=== PATIENT | female | born 1940 | race African-American/Black ===

== ENCOUNTER 2016-11-30 19:02 | Emergency (ER) | payer OTHER, BC ==
[~2016-11-30 19:02] MED LIST: ALD250 PO; ALDOMET OR; ASA5GR PO; ASAB PO; BUM1 PO; BUM2 PO; BUM5 PO; BYSTOLIC5 MG PO; C25; C25 PO; CARDU2 PO; CARDU4 PO; COREG12 PO; COREG3 PO; COREG6 PO; COUMADIN3 MG PO; HALF81 PO; ISRADIPINE 5 MG; KDUR20 PO; LOTE20 PO; LOTE40 PO; MEVACOR PO; OYST-CAL500 MG PO; PLAVIX PO; VITAMIN E PO; VITE PO; ZETIA PO; [UNRECOGNIZED DRUG - OTHER]; [UNRECOGNIZED DRUG - REMARK]; [UNRECOGNIZED DRUG - REMARK]
== END 2016-11-30 20:35 | disposition home or self-care (01) ==
LOC: ER 19:02
DX: M54.5 Low back pain (principal); M79.605 Pain in left leg; I10 Essential (primary) hypertension; I48.91 Unspecified atrial fibrillation; Z88.8 Allergy status to other drugs, medicaments and biological substances; Z88.5 Allergy status to narcotic agent; Z79.899 Other long term (current) drug therapy; Z79.01 Long term (current) use of anticoagulants; V89.9XXA Person injured in unspecified vehicle accident, initial encounter
CPT/HCPCS: 72100; 73560-LT; 99284

== ENCOUNTER 2016-12-23 14:54 | Emergency (ER) | payer OTHER, BC ==
[2016-12-23 13:30] LABS: BASOPHILS 0.2 %; BASOPHILS ABSOLUTE 0.01 10/3/uL (0.0-0.16); EOSINOPHILS 0.7 %; EOSINOPHILS ABSOLUTE 0.03 10/3/uL (0.0-0.53); ER CBC TAT 0 Hrs 03 Mins; HEMATOCRIT 38.9 % (36.0-48.0); HEMOGLOBIN 13.2 g/dL (12.0-16.0); LYMPHOCYTES 39.3 %; LYMPHOCYTES ABSOLUTE 1.61 10/3/uL (0.67-4.30); MANUAL DIFF NO %; MEAN CORPUS HGB CONC 33.9 g/dL (32.0-36.0); MEAN CORPUSCULAR HEMOGLOB 31.2 pg (26.0-34.0); MEAN PLATELET VOLUME 8.9 fL (9.2-13.0); MONOCYTES 7.1 %; MONOCYTES ABSOLUTE 0.29 10/3/uL (0.21-1.20); NEUTROPHILS 52.7 %; NEUTROPHILS ABSOLUTE 2.16 10/3/uL (2.02-8.40); PLATELET COUNT 253 10/3/uL (150-400); RBC DISTRIBUTION WIDTH 14.2 % (12.0-16.0); RED CELL COUNT 4.23 10/6/uL (4.0-5.6); WHITE BLOOD CELLS 4.1 10/3/uL (4.5-10.5)
[2016-12-23 13:39] LABS: INTERNATIONAL NORMAL RATI 1.4 UNITS (-); PARTIAL THROMBO TIME 32.3 SEC (22.5-37.2); PROTIME (NOT ORD) 17.3 SEC (12.0-14.5)
[2016-12-23 13:47] LABS: BUN (BLOOD UREA NITROGEN) 11 MG/DL (6-23); CHEST PAIN PROFILE TAT 0 Hrs 20 Mins; CHLORIDE, SERUM 107 MMOL/L (96-112); CO2 (CARBON DIOXIDE) 29 MMOL/L (24-34); CREATININE 1.06 MG/DL (0.55-1.02); GFR AFRICAN AMERICAN 59 ML/MIN (>=60); GFR NON AFRICAN AMERICAN 51 ML/MIN (>=60); GLUCOSE, SERUM 87 MG/DL (60-99); POTASSIUM, SERUM 3.4 MMOL/L (3.5-5.3); SODIUM, SERUM 142 MMOL/L (135-148); TROPONIN I <0.02 NG/ML (<0.05)
== END 2016-12-23 16:44 | disposition home or self-care (01) ==
LOC: ER 14:54
PROVIDERS: Physician Assistant
DX: M54.2 Cervicalgia (principal); R06.00 Dyspnea, unspecified; I10 Essential (primary) hypertension; I48.91 Unspecified atrial fibrillation; Z88.5 Allergy status to narcotic agent; Z88.8 Allergy status to other drugs, medicaments and biological substances; Z79.899 Other long term (current) drug therapy; Z79.01 Long term (current) use of anticoagulants; V89.0XXA Person injured in unspecified motor-vehicle accident, nontraffic, initial encounter
CPT/HCPCS: 70450; 71010; 72125; 80048; 83735; 83880; 84484; 85025; 85610; 85730; 93005; 99284